=== PATIENT | male | born 1965 | race Two or more races ===

== ENCOUNTER → 2019-08-19 | Outpatient (CLI) | payer OTHER ==
[2019-08-19 15:03] LABS: BASO % 1 % (0-3); EOS # 0.2 x10^3/uL (0.0-0.7); EOS % 5 % (0-3); HEMATOCRIT 42.7 % (39.0-53.0); HEMOGLOBIN 14.5 g/dL (13.0-17.5); LYMPH # 1.2 x10^3/uL (1.0-4.8); LYMPH % 31 % (24-48); MEAN CORPUSCULAR HEMOGLOBIN 32 pg (25-35); MEAN CORPUSCULAR HGB CONC 34 g/dL (31-37); MEAN CORPUSCULAR VOLUME 93 fL (79-100); MONO # 0.5 x10^3/uL (0.0-1.1); MONO % 12 % (0-9); NEUT # 1.9 x10^3/uL (1.8-7.7); NEUT % 51 % (31-73); PLATELET COUNT 197 x10^3/uL (140-400); RED BLOOD COUNT 4.61 x10^6/uL (4.30-5.70); RED CELL DISTRIBUTION WIDTH 14.3 % (11.5-14.5); WHITE BLOOD COUNT 3.8 x10^3/uL (4.0-11.0)
[2019-08-19 15:11] LABS: PROTHROMBIN TIME PATIENT 12.4 SEC (11.7-14.0)
[2019-08-19 15:24] LABS: ALBUMIN 3.5 g/dL (3.4-5.0); ALBUMIN/GLOBULIN RATIO 0.9 (1.0-1.7); CALCIUM 8.5 mg/dL (8.5-10.1); CREATININE 0.9 mg/dL (0.7-1.3); GFR 87.6; POTASSIUM 4.4 mmol/L (3.5-5.1); TOTAL BILIRUBIN 0.4 mg/dL (0.2-1.0); TOTAL PROTEIN 7.4 g/dL (6.4-8.2)
== END | disposition home or self-care (01) ==
LOC: SURGPAT 13:48 → EDUNIT# 14:00
PROVIDERS: ATTEND Specialist
DX: Z01.818 Encounter for other preprocedural examination (principal); K80.20 Calculus of gallbladder without cholecystitis without obstruction
CPT/HCPCS: 36415; 80053; 85025; 85610

== ENCOUNTER → 2019-08-19 | Outpatient (CLI) | payer OTHER ==
--- NOTE | 2019-08-19 08:13 | RAD ---
EXAM: Abdomen sonogram. HISTORY: Cholelithiasis. TECHNIQUE: Sonographic imaging of the abdomen was performed. COMPARISON: None. FINDINGS: The liver is normal in size. There is hepatic steatosis. No focal hepatic lesion is seen. There is cholelithiasis. The common bile duct is normal in caliber. The right kidney and inferior vena cava are unremarkable. The pancreas is obscured due to bowel gas. IMPRESSION: 1. Hepatic steatosis. 2. Cholelithiasis. Electronically signed by: Velia Arteaga MD (08/19/2019 8:10 AM) [facility] [place]
== END | disposition home or self-care (01) ==
LOC: US 07:48
PROVIDERS: ATTEND Specialist
DX: K76.0 Fatty (change of) liver, not elsewhere classified (principal); K80.20 Calculus of gallbladder without cholecystitis without obstruction
CPT/HCPCS: 76705

== ENCOUNTER 2019-08-26 07:26 | Day surgery (SDC) | payer OTHER ==
[~2019-08-26] VITALS: Ht 167.6 cm; Wt 78.0 kg
[~2019-08-26 07:26] MED LIST: HYDROmorphone 2 MG/ML VIAL IV PRN; IV RINGERS,LACTATED 1000ML 1,000 ML IV SCH; MORPHINE SULFATE 2 MG/ML VIAL. IV PRN; ONDANSETRON PF 4 MG/2 ML VIAL. IV PRN; PROCHLORPERAZINE 10 MG/2 ML VIAL. IV PRN; fentaNYL PF VIAL 100 MCG/2 ML VIAL IV PRN
[2019-08-26] MEDS ORDERED: BUPIVACAINE-EPI 0.5%-1:200000 MPF 30 ML VIAL. ONE (07:27)
[2019-08-26] MEDS ORDERED: IOHEXOL 300 MG/ML 50 ML VIAL. ONE (07:28)
[2019-08-26] MEDS ORDERED: ROCURONIUM 50 MG/5 ML VIAL. ONE (08:52)
[2019-08-26] MEDS ORDERED: SUCCINYLCHOLINE 200 MG/10 ML VIAL. ONE (08:52)
--- NOTE | 2019-08-26 08:52 | PDOC ---
SURGICAL PROGRESS NOTE Subjective Surgeon.......................Bradley PreOp Diagnosis..........Chronic Cholecystitis PostOp Diagnosis........Chronic Cholecystitis Anesthesia..................General Procedure...................Laproscopic Cholecystectomy Drains........................None Fluids........................See Anesthesia Blood Loss................20cc Condition...................Satisfactory Vital Signs Vital Signs Date Time Temp Pulse Resp B/P (MAP) Pulse Ox O2 Delivery O2 Flow Rate FiO2 08/26/19 07:56 97.2 64 20 131/86 97 Room Air 97.2 RYANN BRADLEY MD Aug 26, 2019 08:52
[2019-08-26] MEDS ORDERED: fentaNYL PF VIAL 100 MCG/2 ML VIAL ONE ×2 (08:54→09:26)
[2019-08-26] MEDS: ceFAZolin SODIUM IV Push 1 GM VIAL. IVP PRN (09:10)
--- NOTE | 2019-08-26 09:11 | PDOC ---
SURGICAL PROGRESS NOTE Subjective No change in dictated H&P. Vital Signs Vital Signs Date Time Temp Pulse Resp B/P (MAP) Pulse Ox O2 Delivery O2 Flow Rate FiO2 08/26/19 07:56 97.2 64 20 131/86 97 Room Air 97.2 RYANN BRADLEY MD Aug 26, 2019 09:11
[2019-08-26] MEDS ORDERED: MIDAZOLAM HCL/PF 2 MG/2 ML VIAL. ONE (09:25)
[2019-08-26] MEDS ORDERED: DEXAMETHASONE SOD PHOS 20 MG/5 ML VIAL. ONE (09:28)
[2019-08-26] MEDS ORDERED: NEOSTIGMINE METHYLSULFATE 5 MG/5 ML SYRINGE. ONE (09:34)
[2019-08-26] MEDS ORDERED: GLYCOPYRROLATE 1 MG/5 ML VIAL. ONE (09:35)
[2019-08-26] MEDS ORDERED: PROPOFOL 20 ML IV ONE (09:54)
[2019-08-26] MEDS ORDERED: ePHEDrine PF IN SALINE 50 MG/10 ML SYRINGE. IV ONE (09:54)
[2019-08-26] MEDS ORDERED: LIDOCAINE 2% PF 5 ML VIAL. ONE (09:54)
--- NOTE | 2019-08-26 11:48 | DISCH ---
DISCHARGE INSTRUCTIONS Condition on Discharge Condition on Discharge: Stable Activity After Discharge Activity Instructions for Disc: Avoid exertion Diet after Discharge Diet after Discharge: Clear Liquid Wound Incision Care Wound/Incision Care: Other, see below Other wound/incision instructi: may shower..change dressing only if absolutely mecessary Follow-Up Follow up with: Dr Bradley 2 weeks Treatment/Equipment after DC Adaptive Equipment Issued: None RYANN BRADLEY MD Aug 26, 2019 11:48
[2019-08-26 12:25] VITALS: BP 119/78
[2019-08-26] MEDS ORDERED: HYDROcodone/APAP 7.5/325MG 1 TAB TABLET PO ONE (12:45)
[2019-08-26] MEDS ORDERED: PHENAZOPYRIDINE 200 MG TABLET. PO ONE (13:00)
--- NOTE | 2019-08-27 02:24 | OP ---
DATE OF SURGERY: 08/26/2019 SURGEON: Uche Bradley MD PREOPERATIVE DIAGNOSES: Chronic cholecystitis and cholelithiasis. POSTOPERATIVE DIAGNOSES: Chronic cholecystitis and cholelithiasis. ANESTHESIA: General. PROCEDURE: Laparoscopic cholecystectomy with attempted cholangiogram. TECHNIQUE: Under general anesthesia, the patient was properly prepped and draped in routine fashion. He had not had previous surgery before and therefore, an infraumbilical incision was made with a 15 blade and carried down through the skin. This was longitudinal and a Veress needle was placed just towel clips were placed on each side. As the Veress needle was placed into the peritoneal cavity, we instilled about 2-3 mL of saline, let it go by gravity into the abdominal cavity. We then insufflated the abdomen with CO2 up to 15 and then placed 10, 11 mm trocar. We then placed 11 mm camera and under direct visualization, placed 5 mm ports in the epigastrium, right upper quadrant and lateral abdomen on the right. We then placed the graspers in the lateral ports and dissected around the right angle in the epigastric port, placed the patient in reverse Trendelenburg left side down. The gallbladder was seen. The liver was noted. The liver appeared normal, not abnormal except for adhesions to the gallbladder. These adhesions were slowly taken down simply by pulling them away with a dissector. We then grasped the gallbladder at the ampulla with right lateral grasper, pushed it up toward the right shoulder and grasped the ampulla that had been cleared away of the adhesions with the right upper quadrant grasper and then took all the adhesions and the tissue away from the cystic duct. We did see the cystic duct clearly going into the gallbladder and encircled it high near the gallbladder and clipped the gallbladder twice. The cystic duct was opened and we then attempted to place a catheter for cholangiogram and could get it in the cystic duct and could not thread it in, so that we clipped it. This was then aborted as the cystic duct was clamped 3 times on the patient's side and then divided. The tissue going to the gallbladder was then all removed using the Harmonic scalpel. The artery was close to the cystic duct and clipped it there. We then slowly shelled the gallbladder out of the gallbladder fossa as we slowly removed the gallbladder. Before we completely removed, we looked at the fossa. There was no bleeding or bile leaks, was amputated from the liver tip. It should be noted that we did see part of the common duct, which appeared to be normal as the cystic duct was clipped away from it. We then placed the 5 mm camera in the epigastric port and placed the EndoCatch basket through the umbilical port and placing up toward the right upper quadrant, we then opened it and placed the gallbladder into the basket. The basket was then closed as the graspers were removed. The gallbladder was then removed without difficulty totally. This having been done, we inspected all areas and we then approximated using two #0 Prolene sutures the fascia at the infraumbilical incision. We then inflated the abdomen and then leaving the sutures tied, pulled up on them and then injected 0.5% Marcaine into the area around the infraumbilical incision and the fascia. The wounds were then irrigated with copious amounts of saline and approximated deeply with 4-0 Vicryl. The skin was closed in all four locations using a subcuticular 5-0 Vicryl. Sterile Tegaderm dressings were applied and the procedure was basically terminated. Blood loss was probably 15-20 mL. Fluids given can be obtained from the anesthesia sheet. No drains were used. Condition of the patient was satisfactory as he was returned to the recovery room. UCHE BRADLEY MD DR: BALTAZAR/adrianna JOB#: [id number] / [id number]
--- NOTE | 2019-08-27 09:25 | HP ---
ADMIT DATE: 08/26/2019 HISTORY OF PRESENT ILLNESS: The patient is referred by Dr. March because of symptomatic cholelithiasis. His history shows that he has had postprandial pain, bloating with gas sensation in the right upper quadrant. He also has what he states as reflux and sometimes cannot lie down flat, he takes a little medicine for it, it lasts about 2 weeks and he does well, but he does have this reflux from time to time with heartburn and mid epigastric distress that is separate from the gallbladder bloating, etc. He has never had jaundice and was sent to me because of this and he also has had a sonogram, which shows gallstones. This was done at [facility] on 09/10/2018. PAST MEDICAL HISTORY: Shows normal childhood diseases. He has no high blood pressure, cancer, TB, asthma or other diseases other than the reflux. ALLERGIES: He has no allergies. PAST SURGICAL HISTORY: The only surgery has been an open appendectomy done about 15 years ago. FAMILY HISTORY: Positive for many people with gallbladder disease and having been treated. SOCIAL HISTORY: Shows he does not smoke, drink or use illicit drugs. PHYSICAL EXAMINATION: GENERAL: Shows an alert male in no acute distress. HEAD, EARS, EYES, NOSE and THROAT: Grossly normal. CHEST: Clear bilaterally to auscultation. HEART: Had no murmurs, friction rubs or other abnormalities. The rate estimated to be 70 beats per minute and it was regular. ABDOMEN: Relatively soft. Could not feel any organs. He did have pain at the umbilicus and a small umbilical hernia. Some pain to deep palpation of the right upper quadrant, but no other abnormalities. He stated to have some pain in the right groin, but I was not able to elicit hernia or any other abnormalities. EXTREMITIES: Grossly normal. RECTAL: Not done. IMPRESSION: Chronic cholecystitis and cholelithiasis, small umbilical hernia and gastric reflux with gastroesophageal reflux disease. PLAN: We will plan cholecystectomy. RYANN BRADLEY MD DR: BALTAZAR/adrianna JOB#: [id number] / [id number]
--- NOTE | 2019-08-27 15:07 | PATHOLOGY ---
[facility] Accession Number: [id number] . 01 Material submitted: . gallbladder - GALLBLADDER WITH CONTENTS . 01 Clinical history: . Chronic cholecystitis and cholelithiasis . 02 Diagnosis: Gallbladder, laparoscopic cholecystectomy: - Cholelithiasis. - Chronic cholecystitis, mild. ([facility] 08/27/2019) [facility] 08/27/2019 0904 Local . 02 Comment: There is no evidence of malignancy. ([facility] 08/27/2019) . 02 Electronically signed: . Ronny Merino MD, Pathologist NPI- [id number] . 01 Gross description: . The specimen is received in formalin, labeled "Mayer, [place]", "gallbladder and contents". Received is an intact gallbladder measuring 8.2 x 3.5 x 3.0 cm. The serosal surface displays a smooth, shiny, pale blue-green appearance. Opening the gallbladder reveals a dark orange-pale green, spongy, bile-stained mucosa. No solid masses or nodules are identified. The gallbladder wall measures 0.1 cm in thickness. Calculi are present within the gallbladder and range in size from 0.3 cm to 0.7 cm. Supervisor Anodizing sections are submitted in cassette A1.([facility]; 08/26/2019) RAFAEL/LARRY 08/26/2019 1651 Local . 02 Pathologist provided ICD-10: K80.10 . 02 CPT . 715943 Specimen Comment: A courtesy copy of this report has been sent to [phone] Specimen Comment: Report sent to Performed at: [address], [place], [place] [id number] MD Stu Tena MD Phone: [phone] Performed at: 02 [facility] [address] [place], [place] [id number] MD Ronny Merino MD Phone: [phone]
== END 2019-08-26 13:18 | disposition home or self-care (01) ==
LOC: SURG 07:26 → EDUNIT# 09:00 → SURG 13:18
PROVIDERS: ATTEND Specialist
DX: K80.10 Calculus of gallbladder with chronic cholecystitis without obstruction (principal); J45.909 Unspecified asthma, uncomplicated; K21.9 Gastro-esophageal reflux disease without esophagitis; F41.9 Anxiety disorder, unspecified; E78.00 Pure hypercholesterolemia, unspecified; Z87.442 Personal history of urinary calculi; Z87.39 Personal history of other diseases of the musculoskeletal system and connective tissue
CPT/HCPCS: 47562; 88304; A7015; J0171; J0330; J0690; J1100; J2001; J2250; J2704; J2710; J3010; J3490; J7030; J7120; Q9967

== ENCOUNTER → 2019-08-28 | Outpatient (CLI) | payer OTHER ==
[2019-08-26 12:25] VITALS: BP 119/78
[2019-08-28 12:19] LABS: ALBUMIN 3.6 g/dL (3.4-5.0); ALBUMIN/GLOBULIN RATIO 0.9 (1.0-1.7); CALCIUM 8.6 mg/dL (8.5-10.1); CREATININE 1.1 mg/dL (0.7-1.3); GFR 69.5; TOTAL BILIRUBIN 0.7 mg/dL (0.2-1.0); TOTAL PROTEIN 7.5 g/dL (6.4-8.2)
== END ==
LOC: LAB 11:42
PROVIDERS: ATTEND Specialist
DX: K80.20 Calculus of gallbladder without cholecystitis without obstruction (principal)
CPT/HCPCS: 36415; 80053

== ENCOUNTER → 2020-02-03 | Outpatient (CLI) | payer OTHER ==
[~2020-02-03] MED LIST changes: +ATOR20TA58 PO; -HYDROmorphone 2 MG/ML VIAL IV PRN; -IV RINGERS,LACTATED 1000ML 1,000 ML IV SCH; -MORPHINE SULFATE 2 MG/ML VIAL. IV PRN; -ONDANSETRON PF 4 MG/2 ML VIAL. IV PRN; -PROCHLORPERAZINE 10 MG/2 ML VIAL. IV PRN; -fentaNYL PF VIAL 100 MCG/2 ML VIAL IV PRN
== END | disposition home or self-care (01) ==
LOC: LAB 12:50
PROVIDERS: ATTEND Specialist
DX: Z11.59 Encounter for screening for other viral diseases (principal)
CPT/HCPCS: U0003-CS

== ENCOUNTER 2020-02-08 07:37 | Day surgery (SDC) | payer OTHER ==
--- NOTE | 2020-02-02 15:15 | PREOP HP ---
DATE OF SERVICE: 02/08/2020 HISTORY OF PRESENT ILLNESS: The patient has had surgery before, but now has a painful mass at the umbilicus and he has been seen a number of times for this. He did not have any nausea, vomiting or cramping abdominal pain. PAST MEDICAL HISTORY: Shows that he did in fact have appendectomy, which was open apparently about 15 years ago and this year had a laparoscopic cholecystectomy. He also does not have high blood pressure, TB, asthma or diabetes. ALLERGIES: No allergies. FAMILY HISTORY: Shows that there is a history of gallbladder disease and they have all been treated for that, he is not sure, but many people in his family have had that. SOCIAL HISTORY: He does not drink, use illicit drugs or smoke. PHYSICAL EXAMINATION: GENERAL: Shows an alert male, in no acute distress. HEAD, EYES, EARS, NOSE AND THROAT: Grossly clear. HEART: Had normal heart tones with a rate of 72 beats per minute and was regular. No murmurs or friction rubs were noted. CHEST: Clear to percussion and auscultation. ABDOMEN: Soft. There was scars of previous surgery. No masses, organomegaly or other abnormalities were noted; however, there was a mass at the umbilicus, which was tender to deep touch. Could not reduce it completely, but there was definite tenderness. There was no redness or erythema or anything to suggest peritoneal irritation. RECTAL: Not done. EXTREMITIES: Grossly normal. IMPRESSION: 1. Status post laparoscopic cholecystectomy and appendectomy. 2. Umbilical hernia. RYANN BRADLEY MD DR: BALTAZAR/adrianna JOB#: [id number] / [id number]
[~2020-02-08] VITALS: Ht 167.6 cm; Wt 83.0 kg
[~2020-02-08 07:37] MED LIST changes: +BUPIVACAINE-EPI 0.5%-1:200000 MPF 30 ML VIAL. ONE; +HYDROmorphone 2 MG/ML VIAL IV PRN; +IV RINGERS,LACTATED 1000ML 1,000 ML IV SCH; +LIDOCAINE 1% PF 2 ML VIAL. ID PRN; +MORPHINE SULFATE 2 MG/ML VIAL. IV PRN; +ONDANSETRON PF 4 MG/2 ML VIAL. IV PRN; +PROCHLORPERAZINE 10 MG/2 ML VIAL. IV PRN; +fentaNYL PF VIAL 100 MCG/2 ML VIAL IV PRN
[2020-02-08] MEDS ORDERED: ceFAZolin SODIUM IV Push 1 GM VIAL. IVP PRN (08:00)
[2020-02-08 08:11] LABS: BASO # 0.1 x10^3/uL (0.0-0.2); BASO % 1 % (0-3); EOS # 0.3 x10^3/uL (0.0-0.7); EOS % 7 % (0-3); HEMATOCRIT 45.9 % (39.0-53.0); HEMOGLOBIN 15.7 g/dL (13.0-17.5); LYMPH # 1.3 x10^3/uL (1.0-4.8); LYMPH % 29 % (24-48); MEAN CORPUSCULAR HEMOGLOBIN 32 pg (25-35); MEAN CORPUSCULAR HGB CONC 34 g/dL (31-37); MEAN CORPUSCULAR VOLUME 94 fL (79-100); MONO # 0.5 x10^3/uL (0.0-1.1); MONO % 10 % (0-9); NEUT # 2.4 x10^3/uL (1.8-7.7); NEUT % 53 % (31-73); PLATELET COUNT 190 x10^3/uL (140-400); RED CELL DISTRIBUTION WIDTH 14.1 % (11.5-14.5); WHITE BLOOD COUNT 4.5 x10^3/uL (4.0-11.0)
[2020-02-08 08:23] LABS: CALCIUM 8.1 mg/dL (8.5-10.1); GFR 77.6; POTASSIUM 3.8 mmol/L (3.5-5.1); PROTHROMBIN TIME PATIENT 12.8 SEC (11.7-14.0)
[2020-02-08 08:29] LABS: ALBUMIN 3.9 g/dL (3.4-5.0); ALBUMIN/GLOBULIN RATIO 1.1 (1.0-1.7); TOTAL BILIRUBIN 0.7 mg/dL (0.2-1.0); TOTAL PROTEIN 7.4 g/dL (6.4-8.2)
[2020-02-08] MEDS ORDERED: ROCURONIUM 50 MG/5 ML VIAL. ONE (08:30)
[2020-02-08] MEDS ORDERED: LIDOCAINE 2% PF 5 ML VIAL. ONE (08:31)
[2020-02-08] MEDS ORDERED: PROPOFOL 10 MG/ML (20ML) VIAL. IV ONE (08:31)
[2020-02-08] MEDS ORDERED: fentaNYL PF VIAL 100 MCG/2 ML VIAL ONE (08:31)
[2020-02-08] MEDS ORDERED: ONDANSETRON PF 4 MG/2 ML VIAL. ONE (08:31)
[2020-02-08] MEDS ORDERED: DEXAMETHASONE SOD PHOS 4 MG/ML VIAL ONE (08:31)
[2020-02-08] MEDS ORDERED: SEVOFLURANE 61 TO 120 MINUTES. IH ONE (08:32)
--- NOTE | 2020-02-08 09:01 | PDOC ---
SURGICAL PROGRESS NOTE DATE: 02/08/20 no change in dictated H&P. TIME: 09:00 Vital Signs Vital Signs Date Time Temp Pulse Resp B/P (MAP) Pulse Ox O2 Delivery O2 Flow Rate FiO2 02/08/20 07:57 97.3 66 20 126/83 97 Room Air 97.3 Labs Laboratory Tests Test 02/08/20 08:00 White Blood Count 4.5 x10^3/uL (4.0-11.0) Red Blood Count 4.90 x10^6/uL (4.30-5.70) Hemoglobin 15.7 g/dL (13.0-17.5) Hematocrit 45.9 % (39.0-53.0) Mean Corpuscular Volume 94 fL (79-100) Mean Corpuscular Hemoglobin 32 pg (25-35) Mean Corpuscular Hemoglobin Concent 34 g/dL (31-37) Red Cell Distribution Width 14.1 % (11.5-14.5) Platelet Count 190 x10^3/uL (140-400) Neutrophils (%) (Auto) 53 % (31-73) Lymphocytes (%) (Auto) 29 % (24-48) Monocytes (%) (Auto) 10 % (0-9) Eosinophils (%) (Auto) 7 % (0-3) Basophils (%) (Auto) 1 % (0-3) Neutrophils # (Auto) 2.4 x10^3/uL (1.8-7.7) Lymphocytes # (Auto) 1.3 x10^3/uL (1.0-4.8) Monocytes # (Auto) 0.5 x10^3/uL (0.0-1.1) Eosinophils # (Auto) 0.3 x10^3/uL (0.0-0.7) Basophils # (Auto) 0.1 x10^3/uL (0.0-0.2) Prothrombin Time 12.8 SEC (11.7-14.0) Prothromb Time International Ratio 1.0 (0.8-1.1) Activated Partial Thromboplast Time 33 SEC (24-38) Sodium Level 137 mmol/L (136-145) Potassium Level 3.8 mmol/L (3.5-5.1) Chloride Level 104 mmol/L (98-107) Carbon Dioxide Level 23 mmol/L (21-32) Anion Gap 10 (6-14) Blood Urea Nitrogen 16 mg/dL (8-26) Creatinine 1.0 mg/dL (0.7-1.3) Estimated GFR (Cockcroft-Gault) 77.6 BUN/Creatinine Ratio 16 (6-20) Glucose Level 93 mg/dL (70-99) Calcium Level 8.1 mg/dL (8.5-10.1) Total Bilirubin 0.7 mg/dL (0.2-1.0) Aspartate Amino Transf (AST/SGOT) 34 U/L (15-37) Alanine Aminotransferase (ALT/SGPT) 49 U/L (16-63) Alkaline Phosphatase 74 U/L (46-116) Total Protein 7.4 g/dL (6.4-8.2) Albumin 3.9 g/dL (3.4-5.0) Albumin/Globulin Ratio 1.1 (1.0-1.7) Laboratory Tests Test 02/08/20 08:00 White Blood Count 4.5 x10^3/uL (4.0-11.0) Red Blood Count 4.90 x10^6/uL (4.30-5.70) Hemoglobin 15.7 g/dL (13.0-17.5) Hematocrit 45.9 % (39.0-53.0) Mean Corpuscular Volume 94 fL (79-100) Mean Corpuscular Hemoglobin 32 pg (25-35) Mean Corpuscular Hemoglobin Concent 34 g/dL (31-37) Red Cell Distribution Width 14.1 % (11.5-14.5) Platelet Count 190 x10^3/uL (140-400) Neutrophils (%) (Auto) 53 % (31-73) Lymphocytes (%) (Auto) 29 % (24-48) Monocytes (%) (Auto) 10 % (0-9) Eosinophils (%) (Auto) 7 % (0-3) Basophils (%) (Auto) 1 % (0-3) Neutrophils # (Auto) 2.4 x10^3/uL (1.8-7.7) Lymphocytes # (Auto) 1.3 x10^3/uL (1.0-4.8) Monocytes # (Auto) 0.5 x10^3/uL (0.0-1.1) Eosinophils # (Auto) 0.3 x10^3/uL (0.0-0.7) Basophils # (Auto) 0.1 x10^3/uL (0.0-0.2) Prothrombin Time 12.8 SEC (11.7-14.0) Prothromb Time International Ratio 1.0 (0.8-1.1) Activated Partial Thromboplast Time 33 SEC (24-38) Sodium Level 137 mmol/L (136-145) Potassium Level 3.8 mmol/L (3.5-5.1) Chloride Level 104 mmol/L (98-107) Carbon Dioxide Level 23 mmol/L (21-32) Anion Gap 10 (6-14) Blood Urea Nitrogen 16 mg/dL (8-26) Creatinine 1.0 mg/dL (0.7-1.3) Estimated GFR (Cockcroft-Gault) 77.6 BUN/Creatinine Ratio 16 (6-20) Glucose Level 93 mg/dL (70-99) Calcium Level 8.1 mg/dL (8.5-10.1) Total Bilirubin 0.7 mg/dL (0.2-1.0) Aspartate Amino Transf (AST/SGOT) 34 U/L (15-37) Alanine Aminotransferase (ALT/SGPT) 49 U/L (16-63) Alkaline Phosphatase 74 U/L (46-116) Total Protein 7.4 g/dL (6.4-8.2) Albumin 3.9 g/dL (3.4-5.0) Albumin/Globulin Ratio 1.1 (1.0-1.7) RYANN BRADLEY MD Feb 08, 2020 09:01
--- NOTE | 2020-02-08 09:04 | PDOC ---
SURGICAL PROGRESS NOTE DATE: 02/08/20 TIME: 09:01 Op Note: Surgeon...................................Wtson Pre and post op diag..................Incarcerated umbilical hernia Anesthesia...............................general Procedure................................repair incarc. umbilical hernia Drains.....................................none Blood loss................................5cc Fluids......................................see anesthesia sheet Condition..................................satisfactory Vital Signs Vital Signs Date Time Temp Pulse Resp B/P (MAP) Pulse Ox O2 Delivery O2 Flow Rate FiO2 02/08/20 07:57 97.3 66 20 126/83 97 Room Air 97.3 Labs Laboratory Tests Test 02/08/20 08:00 White Blood Count 4.5 x10^3/uL (4.0-11.0) Red Blood Count 4.90 x10^6/uL (4.30-5.70) Hemoglobin 15.7 g/dL (13.0-17.5) Hematocrit 45.9 % (39.0-53.0) Mean Corpuscular Volume 94 fL (79-100) Mean Corpuscular Hemoglobin 32 pg (25-35) Mean Corpuscular Hemoglobin Concent 34 g/dL (31-37) Red Cell Distribution Width 14.1 % (11.5-14.5) Platelet Count 190 x10^3/uL (140-400) Neutrophils (%) (Auto) 53 % (31-73) Lymphocytes (%) (Auto) 29 % (24-48) Monocytes (%) (Auto) 10 % (0-9) Eosinophils (%) (Auto) 7 % (0-3) Basophils (%) (Auto) 1 % (0-3) Neutrophils # (Auto) 2.4 x10^3/uL (1.8-7.7) Lymphocytes # (Auto) 1.3 x10^3/uL (1.0-4.8) Monocytes # (Auto) 0.5 x10^3/uL (0.0-1.1) Eosinophils # (Auto) 0.3 x10^3/uL (0.0-0.7) Basophils # (Auto) 0.1 x10^3/uL (0.0-0.2) Prothrombin Time 12.8 SEC (11.7-14.0) Prothromb Time International Ratio 1.0 (0.8-1.1) Activated Partial Thromboplast Time 33 SEC (24-38) Sodium Level 137 mmol/L (136-145) Potassium Level 3.8 mmol/L (3.5-5.1) Chloride Level 104 mmol/L (98-107) Carbon Dioxide Level 23 mmol/L (21-32) Anion Gap 10 (6-14) Blood Urea Nitrogen 16 mg/dL (8-26) Creatinine 1.0 mg/dL (0.7-1.3) Estimated GFR (Cockcroft-Gault) 77.6 BUN/Creatinine Ratio 16 (6-20) Glucose Level 93 mg/dL (70-99) Calcium Level 8.1 mg/dL (8.5-10.1) Total Bilirubin 0.7 mg/dL (0.2-1.0) Aspartate Amino Transf (AST/SGOT) 34 U/L (15-37) Alanine Aminotransferase (ALT/SGPT) 49 U/L (16-63) Alkaline Phosphatase 74 U/L (46-116) Total Protein 7.4 g/dL (6.4-8.2) Albumin 3.9 g/dL (3.4-5.0) Albumin/Globulin Ratio 1.1 (1.0-1.7) Laboratory Tests Test 02/08/20 08:00 White Blood Count 4.5 x10^3/uL (4.0-11.0) Red Blood Count 4.90 x10^6/uL (4.30-5.70) Hemoglobin 15.7 g/dL (13.0-17.5) Hematocrit 45.9 % (39.0-53.0) Mean Corpuscular Volume 94 fL (79-100) Mean Corpuscular Hemoglobin 32 pg (25-35) Mean Corpuscular Hemoglobin Concent 34 g/dL (31-37) Red Cell Distribution Width 14.1 % (11.5-14.5) Platelet Count 190 x10^3/uL (140-400) Neutrophils (%) (Auto) 53 % (31-73) Lymphocytes (%) (Auto) 29 % (24-48) Monocytes (%) (Auto) 10 % (0-9) Eosinophils (%) (Auto) 7 % (0-3) Basophils (%) (Auto) 1 % (0-3) Neutrophils # (Auto) 2.4 x10^3/uL (1.8-7.7) Lymphocytes # (Auto) 1.3 x10^3/uL (1.0-4.8) Monocytes # (Auto) 0.5 x10^3/uL (0.0-1.1) Eosinophils # (Auto) 0.3 x10^3/uL (0.0-0.7) Basophils # (Auto) 0.1 x10^3/uL (0.0-0.2) Prothrombin Time 12.8 SEC (11.7-14.0) Prothromb Time International Ratio 1.0 (0.8-1.1) Activated Partial Thromboplast Time 33 SEC (24-38) Sodium Level 137 mmol/L (136-145) Potassium Level 3.8 mmol/L (3.5-5.1) Chloride Level 104 mmol/L (98-107) Carbon Dioxide Level 23 mmol/L (21-32) Anion Gap 10 (6-14) Blood Urea Nitrogen 16 mg/dL (8-26) Creatinine 1.0 mg/dL (0.7-1.3) Estimated GFR (Cockcroft-Gault) 77.6 BUN/Creatinine Ratio 16 (6-20) Glucose Level 93 mg/dL (70-99) Calcium Level 8.1 mg/dL (8.5-10.1) Total Bilirubin 0.7 mg/dL (0.2-1.0) Aspartate Amino Transf (AST/SGOT) 34 U/L (15-37) Alanine Aminotransferase (ALT/SGPT) 49 U/L (16-63) Alkaline Phosphatase 74 U/L (46-116) Total Protein 7.4 g/dL (6.4-8.2) Albumin 3.9 g/dL (3.4-5.0) Albumin/Globulin Ratio 1.1 (1.0-1.7) RYANN BRADLEY MD Feb 08, 2020 09:04
[2020-02-08] MEDS ORDERED: PHENYLEPHRINE in 0.9% NACL PF 1 MG/10 ML SYRINGE. IV ONE (09:21)
[2020-02-08] MEDS ORDERED: KETOROLAC 30 MG/ML VIAL. ONE (09:39)
[2020-02-08] MEDS ORDERED: NEOSTIGMINE METHYLSULFATE 5 MG/5 ML SYRINGE. ONE (09:59)
[2020-02-08] MEDS ORDERED: GLYCOPYRROLATE 1 MG/5 ML VIAL. ONE (09:59)
--- NOTE | 2020-02-08 10:38 | DISCH ---
DISCHARGE INSTRUCTIONS Condition on Discharge Condition on Discharge: Stable Activity After Discharge Activity Instructions for Disc: Avoid exertion Diet after Discharge Diet after Discharge: Clear Liquid Wound Incision Care Wound/Incision Care: Other, see below Other wound/incision instructi: may shower after 2 days..do not remove dressing if possible Follow-Up Follow up with: Yuki Lee in 2 weeks Treatment/Equipment after DC Adaptive Equipment Issued: None RYANN BRADLEY MD Feb 08, 2020 10:38
[2020-02-08] MEDS ORDERED: HYDR-2765 PO (10:56)
[2020-02-08] MEDS ORDERED: HYDROcodone/APAP 7.5/325MG 1 TAB TABLET PO ONE (11:00)
[2020-02-08 11:45] VITALS: BP 121/72
--- NOTE | 2020-02-08 19:18 | OP ---
DATE OF SURGERY: 02/08/2020 SURGEON: Uche Bradley MD PREOPERATIVE DIAGNOSIS: Incarcerated umbilical hernia. POSTOPERATIVE DIAGNOSIS: Incarcerated umbilical hernia. ANESTHESIA: General. PROCEDURE: Repair of incarcerated umbilical hernia and mesh was used. TECHNIQUE: Under general anesthesia, the patient was properly prepped and draped in routine fashion. He had an umbilical hernia that was painful and we could not reduce it. We made a supraumbilical incision just right at the umbilicus following the skin lines with a 15 blade. This was about 1.5 inch in length. We carried this down through the skin. We got into the subcutaneous and spreading with clamps and also Metzenbaum scissors, we identified the small sac. Actually, the sac was bigger than we thought, it was about the size of the ____. We then put Antonieta retractors on the inferior portion of the skin where the umbilicus was and the hernia was attached. We pulled this up and using Metzenbaum scissors and also clamps, we went around the hernia on the inferior side, not entering the sac. We then placed a [place] drain there, pulled it up and with traction on the Antonieta retractors, used the 15 blade to cut the sac off of the umbilicus. Luckily, we did not enter the sac and we did not enter the peritoneal cavity. The sac was then completely removed. We pulled it up with DeBakey forceps and then using sharp dissection with Metzenbaum scissors, cut all the attachments to the sac from around the small hernia ring. The ring was fairly small, being probably a centimeter or two in size, but the hernia was much larger. Luckily, once we got this freed up, we could reduce the hernia without difficulty. As stated before, we did not enter the peritoneal sac. We decided ____ the opening was too small to place hernia plug and as such, we just used the mesh, cut it in a fashion and placed it in the area under the hernia and then sutured it in place as we closed the wound, we sutured it with the #1 Prolene suture that were used. This is what we used. We used ____ to close the hernia. We placed these and then incorporated the mesh, so that it would lay under there. This was smaller than the plug and we then tied these. Pulling up on the sutures, we then injected around the fascia 0.5% Marcaine with epinephrine. Subcutaneous was irrigated with saline and then inspected. Bleeding had been controlled with pressure and we then proceeded to suture the umbilicus down to the fascia using the 4-0 Vicryl and we also used 4-0 Vicryl to bury the knots where the Prolene was. This having been done, then we could not feel the Prolene sutures. They were not sticking up, all lay flat. The umbilicus was reduced and we simply closed the subcutaneous with 4-0 Vicryl and closed the skin using a subcuticular 5-0 Vicryl. The procedure was now terminated as sterile Tegaderm dressing was applied. The blood loss was probably 3-4 mL. Fluids given can be obtained from the anesthesia sheet. No drains were used and the condition of the patient was satisfactory as he has returned to the recovery room. UCHE BRADLEY MD DR: BALTAZAR/adrianna JOB#: [id number] / [id number]
== END 2020-02-08 12:17 | disposition home or self-care (01) ==
LOC: SURG 07:37
PROVIDERS: ATTEND Specialist
DX: K42.0 Umbilical hernia with obstruction, without gangrene (principal); K21.9 Gastro-esophageal reflux disease without esophagitis; Z72.89 Other problems related to lifestyle; Z79.899 Other long term (current) drug therapy; Z79.01 Long term (current) use of anticoagulants
CPT/HCPCS: 36415; 49587; 80053; 85025; 85610; 85730; A7015; C1781; J0690; J1100; J1885; J2370; J2405; J2704; J2710; J3490; J3010